=== PATIENT | male | born 1995 | race Two or more races ===

== ENCOUNTER 2022-10-07 09:00 | Emergency (ER) | payer OTHER, SELFPAY ==
[2022-10-07 09:10] VITALS: BP 120/80; PULSE 106; RESP 18; TEMP 36.7; O2SAT 100
--- NOTE | 2022-10-07 09:11 | ED.SKABFB ---
HPI - Skin/Abscess/Foreign Bdy General Chief complaint: Skin/Abscess/Foreign Body Stated complaint: ABSCESS Time Seen by Provider: 10/07/22 09:11 Source: patient, RN notes reviewed and old records reviewed Mode of arrival: ambulatory Limitations: no limitations History of Present Illness HPI narrative: 26 year old male who presents to express care with complaints of abscess to his left inner buttock for the past month which has been draining. Patient reports that he squeezed area and got some yellow pus from area and also some white cheesy looking material. Patient reports that he has had reoccurrence of this lesion over the past year. He reports body aches, nausea and decreased appetite denies any fevers, vomiting or diarrhea.Patient reports that he has not had any oral antibiotics or applied any type of antibacterial ointment to area. He has pain upon palpation of area with some inner fluctuance but surrounding induration with no redness streaking or warmth. MD complaint: abscess/boil Onset (ago): month(s) (1) Treatments prior to arrival: attempted to drain pus at home Related Data Allergies Allergy/AdvReac Type Severity Reaction Status Date / Time No Known Allergies Allergy Verified 10/07/22 12:01 Review of Systems Review of Systems: CONSTITUTIONAL: Denies fever, chills, or sweats. CARDIOVASCULAR: Denies chest pain, palpitations, or edema. RESPIRATORY: Denies cough or dyspnea. GASTROINTESTINAL: Denies abdominal pain,states nausea,no vomiting, no diarrhea SKIN: Reports 1cm X1cm swollen fluctuant abscess left inner buttock. Reports drainage of purulent material and white cheesy like substance is tender to palpation no warmth to area some surrounding induration total 2cm. MUSCULOSKELETAL: Reports myalgia. NEUROLOGIC: Denies headache, numbness All systems reviewed & are unremarkable except as noted in HPI and below PMFSH Family History Family History Mother Diabetes mellitus Social History Social History (Updated 10/07/22 @ 12:03 by Nohelia Quigley) Smoking status: Current some day smoker Additional smoking assessment comments: Smoke 1pack per month Alcohol intake: current Alcohol use details: Social alcohol use Occupation/Education: student Comments At time of signature, agree with nursing past medical, surgical, social and family history. There is no relevant family history pertinent to the presenting complaint Exam Narrative: GENERAL: Well-appearing, well-nourished, and in no acute distress. HEAD: Normocephalic, atraumatic. EYES: PERRLA and EOMI. ENT: Nares clear, no rhinorrhea or epistaxis. Mucous membranes moist. NECK: Supple.no lymphadenopathy CHEST: Clear to auscultation. No respiratory distress.SAO2 100% on room air HEART: Regular rate and rhythm. No murmur heard. Normal peripheral pulses. ABDOMEN: Soft, nontender, nondistended, normal active bowel sounds. EXTREMITIES: Normal range of motion. No edema. SKIN: center fluctuation with surrounding induration, tenderness to inner left buttock distal aspect, lesion [id number] area with total induration 2cm, no warmth or redness or streaking,drainage bloody drainage with small amount of purulent discharge. NEURO: No focal deficits. Alert and oriented x3. Course Course Emergency Course: Patient is aware of diagnosis, understands and agrees to treatment plan. Anticipatory guidance given. Patient agrees to follow-up as directed and is aware of reasons to seek care at the emergency department. Portions of this record may have been created with voice recognition software Level of Care: Express Care Visit Vital Signs Vital signs: Vital Signs Oxygen Delivery Room Air 10/07/22 09:00 Temperature 36.7 C 10/07/22 09:10 Pulse Rate 106 H 10/07/22 09:10 Respiratory Rate 18 10/07/22 09:10 Blood Pressure 120/80 10/07/22 09:10 Pulse Oximetry 100 10/07/22 09:10 Oxygen Deliver
[2022-10-07] MEDS: LIDOCAINE HCL 1% LOCAL INJ 2 ML AMPUL INFILTRATE (09:35)
== END 2022-10-07 09:55 | disposition home or self-care (01) ==
PROVIDERS: Emergency Provider Registered Nurse
DX: L02.31 Cutaneous abscess of buttock (principal); F17.200 Nicotine dependence, unspecified, uncomplicated
CPT/HCPCS: 10060; 99213; G0463

== ENCOUNTER 2022-11-12 02:23 | Day surgery (SDC) | payer OTHER, SELFPAY ==
[2022-11-05 09:32] VITALS: BMI 21.5
--- NOTE | 2022-11-05 09:35 | PC.NURSE ---
Report to the Outpatient Waiting Room, entrance under the green pavilion located off [facility], at time 0630 on date 11/12/22. Planned Procedure Time: 0830. Time changes happen often and if your time is changed the preop area will call you the afternoon before. - You and your visitor will be asked to self-screen and do not enter if you have any COVID symptoms. - A mask is optional within the hospital at this time. Patients may have clear liquids (water, carbonated beverages, clear teas, apple juice) until 3 hours prior to surgery with a maximum of 20 ounces. - No food from midnight until time of surgery Take the following medications with a SIP of water the morning of surgery: ANTIBIOTIC (IF STILL TAKING) DO NOT STOP ANY OF YOUR OTHER PRESCRIPTION MEDICATIONS PRIOR TO SURGERY ?EXCEPT THE FOLLOWING Medications to discontinue per physician: N/A Date to take last dose: N/A Please no make-up, nail bengali, hairspray, perfume, deodorant, or body powder the day of surgery. No jewelry (including any body piercings) or valuables the day of surgery, leave them at home. Please take a shower or bath the night before, or the morning of, surgery with an antibacterial soap. Wear comfortable, loose fitting clothing. - Jewelry must be removed prior to entering the operating room. Rings and piercings that are not removed may be cut off. - The hospital will not accept responsibility for valuables. - Please leave all valuables, including medications, at home the day of surgery. If you are going home after surgery, a licensed car driver must drive you home. - NO public transportation without another adult if you receive anesthesia. - We recommend that an adult stay with you for 24 hours following discharge. - We also recommend that you do not drive, make important decision, drink alcoholic beverages, or take any drugs that were not prescribed by your health care provider for at least 24 hours after your discharge time. Follow any additional instructions given to you from your surgeon. If you or anyone in your household have experienced Covid symptoms in the past week, please notify your surgeon or the nurse liaison at the phone number below for possible testing. Telephone instructions given to PT - DUANE and asked if any additional questions and then verbalized understanding. Patient advised to call surgeon office or pre surgery nurse liaison [phone] if any additional questions.
[2022-11-12] VITALS (10 sets, daily range): BP systolic 105–135; BP diastolic 63–93; PULSE 88–111; RESP 14–18; TEMP 35.7–37.1; O2SAT 100
[2022-11-12] MEDS: ACETAMINOPHEN 500 MG TABLET 1000 MG PO (07:18)
[2022-11-12] MEDS: LACTATED RINGERS 1,000 ML 30 ML IV CONT (07:42)
--- NOTE | 2022-11-12 08:10 | P.PNAN_ITS ---
Anes - Initial Pre Proc Eval Procedure: Operation Date: 11/12/22 08:30 Proposed Procedures p Anorectal Examination Under Anesthesia, Possible Anal Fistulotomy - Mo Alexis MD Date/Time: 11/12/22 08:10 Surgeon: Mo Alexis MD Pre Op Diagnosis: anal fistula Patient Data Age: 27 Gender: M Height: 1.78 m Weight: 67.3 kg Last Vital Signs Temp 98.7 F 11/12/22 08:05 Pulse 111 H 11/12/22 08:05 Resp 16 11/12/22 08:05 BP 131/87 11/12/22 08:05 Pulse Ox 100 11/12/22 08:05 O2 Del Method Room Air 11/12/22 08:05 Allergies Allergy/AdvReac Type Severity Reaction Status Date / Time No Known Allergies Allergy Verified 11/12/22 07:04 Patient hx anesthesia problems: none Family hx anesthesia problems: none Results Review: All pre-operative results and documents have been reviewed as part of the pre- operative evaluation. PMFSH Family History Family History Mother Diabetes mellitus Social History Social History Smoking status: Current some day smoker Tobacco type: e-cigarettes/vaping Additional smoking assessment comments: Smoke 1pack per month Alcohol intake: current Alcohol use details: VERY RARE Substance use: never Substance use type: does not use Living arrangements: with roommate(s) Occupation/Education: student Spiritual care concerns: No Anes - Eval Final PreProcedure Day of Procedure 11/12/22 08:10 Patient weight: normal Heart: regular rate and rhythm Lungs: clear to auscultation Airway: Mallampati scale class II Neurological: alert and oriented Last oral intake: >/= 8 hours ASA classification: II Emergent: no Anesthetic plan: proceed Anesthesia type and monitoring: general ETT and standard monitoring Results Review: All pre-operative results and documents have been reviewed as part of the pre- operative evaluation. Informed Consent: The patient's anesthetic plan and its attendant risks and benefits were discussed with the patient/family/POA. Questions were solicited and answers provided to the satisfaction of the patient/family/POA.
--- NOTE | 2022-11-12 08:21 | WPDHPUPDATE1 ---
History and Physical Update Update Date/Time: 11/12/22 08:21 History and Physical has been reviewed, including an updated exam of the patient. There are NO changes in the patient's condition. Risks, benefits, and alternatives have been discussed and questions answered. Patient agrees to proceed with procedure.
[2022-11-12] MEDS: KETOROLAC 15 MG/ML VIAL (*BKC) IV PUSH ×2 (08:28→09:40)
[2022-11-12] MEDS: ceFAZolin 2 GM/D5W 50 ML 2 GM/50 ML BAG IVPB (08:36)
--- NOTE | 2022-11-12 10:00 | P.OP_ITS ---
Procedure Note - Detailed Date of Procedure 11/12/22 Pre-op Diagnosis anal fistula Post-op Diagnosis Same Procedure Performed Anorectal evaluation under anesthesia and anal fistulotomy. 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 He has had intermittent drainage from this area for several months and he appears to have an anal fistula. Findings Long tract anal fistula extending to the just at the base of the anal crypt. Associated sinus tract and abscess deep to the external sphincter muscle. The internal opening was fairly superficial and only involved less than 0.5cm of the internal sphincter muscle. Description of Procedure After informed consent was obtained patient brought to the operating room was placed under general endotracheal anesthesia on the gurney. He was then turned in the prone alexandr-knife position on the operating table making sure that all the pressure points well padded. The buttocks were then taped apart and the perianal region was then prepped and draped in usual sterile fashion. A time- out was then performed correctly identifying the patient as well as procedure to be performed and verifying that he was given some perioperative IV antibiotics. I 1st started by likely performing dilation of the anal sphincters. A bivalve anal speculum was then placed into the anal canal and a circumferential evaluation of the anal canal was performed. There were no masses in the canal there was some minor internal hemorrhoids. I did not initially see an internal opening to the fistula tract at the 7 o'clock position or in the anterior midline I then probed the tract and I found that the internal opening was just inside the anal verge at the base of the anal crypts. It was fairly superficial. I then proceeded to perform an anal fistulotomy. With the probe going through the fistula tract I utilized electrocautery on pure cut to divide the tissue on top of the probe. Marsupialized and open the fistula tract completely. The internal opening involved a small portion of the internal sphincter muscle fibers measuring only about 0.5cm or less. I divided the internal sphincter muscles with electrocautery. A portion of the tract and old abscess cavity extended deep to the external sphincter muscle. I did not divide the external sphincter muscle. I then curetted out the tract and then proceeded to fulgurize the fistula tract and destroyed all of the epithelialized cells within the fistula tract. I then irrigated out the incision anal canal. Stasis was good. I then proceeded to pack the tract with quarter-inch iodoform gauze. 0.25% Marcaine with epinephrine was then injected around the area for low postoperative pain relief. There is then cleaned and then 4x4 gauze, an ABD pad, and disposable underwear was used for final dressing. The patient tolerated the procedure well no complications. All sponges, needles, and instrument counts were correct at the end procedure. EBL was _100__cc. The patient was awakened and taken to recovery in stable and satisfactory condition. Implants None Estimated Blood Loss 100 Drains No Packing Yes (Quarter-inch iodoform gauze in fistula tract.) Pathology None sent Complications No immediate complications Condition Stable Disposition PACU [facility] Billing Surgery - Charge Forward: Surgery Billing
[2022-11-12] MEDS: oxyCODONE HCL (*CRX) 5 MG TAB IR PO (11:04)
== END 2022-11-12 11:57 | disposition home or self-care (01) ==
PROVIDERS: Visit Provider Surgery
PROC: (CPT 46275; principal; 2022-11-12 08:30)
DX: K60.3 Anal fistula (principal); F17.290 Nicotine dependence, other tobacco product, uncomplicated
CPT/HCPCS: 46275; A9270; C9290; J0330; J0690; J1100; J1170; J1885; J2250; J2405; J2704; J3010; J7120